=== PATIENT | male | born 2000 | race Caucasian/White ===

== ENCOUNTER → 2019-05-03 | Outpatient (CLI) | payer BC ==
--- NOTE | 2019-05-03 12:01 | Diagnostic Imaging Report ---
PROCEDURE: CT head without contrast. TECHNIQUE: Multiple contiguous axial images were obtained through the brain without the use of intravenous contrast. Auto Exposure Controls were utilized during the CT exam to meet ALARA standards for radiation dose reduction. INDICATION: Head injury worsening right-sided head pain accompanied by nausea. I have no priors. There is no hemorrhage, hydrocephalus, edema, mass, mass effect or evidence for elevated intracerebral pressures. The basal cisterns are patent. There is no sulcal effacement. Orbits, sinuses and calvarium are within normal limits. IMPRESSION: Normal CT head. Dictated by: Dictated on workstation # [id number]
== END ==
LOC: RAD 11:16
PROVIDERS: ATTEND Internal Medicine
DX: S06.0X9A Concussion with loss of consciousness of unspecified duration, initial encounter (principal); X58.XXXA Exposure to other specified factors, initial encounter
CPT/HCPCS: 70450

== ENCOUNTER 2022-03-14 06:31 | Emergency (ER) | payer BC ==
[~2022-03-14] VITALS: Ht 187.9 cm; Wt 100.0 kg
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
[2022-03-14] MEDS: HYDROcodone/APAP 7.5 MG/325 MG (LORTAB, LORCET PLUS) TABLET PO ONE ×2 (06:59→07:02)
[2022-03-14] MEDS ORDERED: TETANUS,DIPTH,PERTUSS P/F (BOOSTRIX) 0.5 ML VIAL IM ONE (07:00)
[2022-03-14 08:18] VITALS: BP 122/86
== END 2022-03-14 08:18 | disposition home or self-care (01) ==
LOC: EDUNIT# 06:31 → ER 06:34
DX: T23.321A Burn of third degree of single right finger (nail) except thumb, initial encounter (principal); T23.231A Burn of second degree of multiple right fingers (nail), not including thumb, initial encounter; Z23 Encounter for immunization; Z28.310 Unvaccinated for COVID-19; X08.8XXA Exposure to other specified smoke, fire and flames, initial encounter; Y99.0 Civilian activity done for income or pay
CPT/HCPCS: 99283; A6223; 90715